=== PATIENT | male | born 1980 | race Asian ===

== ENCOUNTER 2017-10-07 07:46 | Emergency (ER) | payer OTHER ==
[~2017-10-07] VITALS: Ht 167.6 cm; Wt 56.8 kg
[2017-10-07 08:56] VITALS: BP 120/76
== END 2017-10-07 09:15 | disposition home or self-care (01) ==
LOC: EMS 07:48
DX: S50.811A Abrasion of right forearm, initial encounter (principal); Y08.89XA Assault by other specified means, initial encounter; Y93.89 Activity, other specified; Y92.89 Other specified places as the place of occurrence of the external cause; Y99.8 Other external cause status
CPT/HCPCS: 99281

== ENCOUNTER 2018-05-19 14:15 | Emergency (ER) | payer OTHER ==
[~2018-05-19] VITALS: Ht 167.6 cm; Wt 56.8 kg
[2018-05-19] MEDS ORDERED: PERTUSS(ACELL),DIPH,TET VAC/PF 0.5 ML VIAL IM ONE (15:30)
[2018-05-19 16:05] VITALS: BP 129/84
== END 2018-05-19 16:06 | disposition home or self-care (01) ==
LOC: EMS 14:16
DX: S50.811A Abrasion of right forearm, initial encounter (principal); S00.411A Abrasion of right ear, initial encounter; Y04.2XXA Assault by strike against or bumped into by another person, initial encounter; Y93.89 Activity, other specified; Y92.89 Other specified places as the place of occurrence of the external cause; Y99.8 Other external cause status
CPT/HCPCS: 90471; 90715

== ENCOUNTER 2019-06-09 09:18 | Emergency (ER) | payer OTHER ==
[~2019-06-09] VITALS: Ht 165.1 cm; Wt 56.8 kg
[2019-06-09 09:20] VITALS: BP 137/75
[2019-06-09] MEDS ORDERED: SODIUM CHLORIDE 0.9% 1,000 ML IV ONE (09:45)
[2019-06-09] MEDS ORDERED: ONDANSETRON HCL 4 MG/2 ML VIAL IVP ONE (09:45)
[2019-06-09 10:09] LABS: BASOPHILS % (AUTO) 1.7 % (0.0-2.0); HEMATOCRIT 45.4 % (41-53); HEMOGLOBIN 15.4 g/dL (13.5-17.5); LYMPHOCYTES # (AUTO) 2.2 K/uL (1.0-4.8); LYMPHOCYTES % (AUTO) 38.2 % (22.0-44.0); MEAN CORPUSCULAR HGB CONC 33.9 G/dL (31.0-37.0); MEAN CORPUSCULAR VOLUME 91 fL (80-100); MONOCYTES # (AUTO) 0.4 K/uL (0.1-1.0); MONOCYTES % (AUTO) 6.2 % (2.0-9.0); NEUTROPHILS # (AUTO) 2.9 K/uL (1.8-7.7); NEUTROPHILS % (AUTO) 50.9 % (40.0-70.0); PLATELET COUNT (AUTO) 291 K/uL (150-450); RED BLOOD CELL COUNT(AUTO) 4.98 MIL/uL (4.50-5.90); RED CELL DISTRIBUTION WIDTH 13.2 % (11.5-14.5)
[2019-06-09 10:18] LABS: ANION GAP 5 mmol/L (8-16); CARBON DIOXIDE 31 mmol/L (22-29); CHLORIDE 101 mmol/L (98-107); CREATININE 1.01 mg/dL (0.60-1.30); GLOMERULAR FILTR. RATE CALC > 60 mL/min (>60); GLUCOSE,RANDOM 114 mg/dL (70-110); SODIUM SERUM 137 mmol/L (136-145); UREA NITROGEN, BLOOD 16 mg/dL (7-18)
[2019-06-09 10:24] LABS: ALANINE AMINOTRANSFERASE 69 U/L (12-78); ALBUMIN 4.4 g/dL (3.4-5.0); ALKALINE PHOSPHATASE 58 U/L (46-116); ASPARTATE AMINOTRANSFERASE 33 U/L (15-37); BILIRUBIN,TOTAL 0.8 mg/dL (0.1-1.0); LIPASE 95 U/L (73-393); TOTAL PROTEIN, SERUM 7.9 g/dL (6.4-8.2)
== END 2019-06-09 10:49 | disposition home or self-care (01) ==
LOC: EMS 09:24
DX: R11.0 Nausea (principal); R53.83 Other fatigue; Z20.828 Contact with and (suspected) exposure to other viral communicable diseases
CPT/HCPCS: 36415; 80053; 83690; 85025; 87635; 96374; 99283; J2405; J7030